=== PATIENT | female | born 1985 | race Asian ===

== ENCOUNTER → 2020-11-27 | Outpatient (REF) | LOC: M LAB 14:29 | PROVIDERS: ATTEND Nurse Practitioner Adult Health | DX: Z00.00 Encounter for general adult medical examination without abnormal findings (principal) ==

== ENCOUNTER → 2020-12-03 | Outpatient (REF) ==
--- NOTE | 2020-12-03 12:51 | REP ---
INDICATION: [employer]. COMPARISON: None. TECHNIQUE: PA and lateral FINDINGS: The superior mediastinal structures are midline. The cardiac silhouette is unremarkable in size, shape, and position. The diaphragmatic surfaces of the lungs are regular, and the costophrenic angles are clear. The pulmonary mares are clear. The imaged osseous structures are intact. IMPRESSION: There is no acute cardiopulmonary disease. <Electronically signed by Jun Thornton > 12/03/20 2429
== END ==
LOC: M RAD 12:17
PROVIDERS: ATTEND Nurse Practitioner Adult Health
DX: Z02.9 Encounter for administrative examinations, unspecified (principal)

== ENCOUNTER → 2020-12-20 | Outpatient (CLI) | payer OTHER ==
[2020-12-20 13:51] LABS: BASO % 0.8 % (0.0-1.0); EOS # 0.1 10^3/uL (0.0-0.5); EOS % 1.4 % (0.0-3.0); HEMATOCRIT 40.6 % (36.0-47.0); HEMOGLOBIN 13.5 g/dl (12.0-15.5); LYMPH # 2.4 10^3/uL (1.5-5.0); MEAN CORPUSCULAR HEMOGLOBIN 30.4 pg (27.0-33.0); MEAN CORPUSCULAR HGB CONC 33.3 g/dl (32.0-36.5); MEAN CORPUSCULAR VOLUME 91.4 fl (80.0-96.0); MONO # 0.4 10^3/uL (0.0-0.8); MONO % 7.9 % (2.0-8.0); NEUTROPHILS # 2.3 10^3/uL (1.5-8.5); NEUTROPHILS % 43.7 % (36.0-66.0); PLATELET COUNT, AUTOMATED 226 10^3/uL (150-450); RED BLOOD COUNT 4.44 10^6/uL (4.00-5.40); WHITE BLOOD COUNT 5.2 10^3/uL (4.0-10.0)
[2020-12-20 14:21] LABS: ALT/SGPT 29 U/L (12-78); BILIRUBIN,TOTAL 0.9 MG/DL (0.2-1.0); BLOOD UREA NITROGEN 11 MG/DL (7-18); CALCIUM LEVEL 8.8 MG/DL (8.5-10.1); CARBON DIOXIDE LEVEL 30 MEQ/L (21-32); CHLORIDE LEVEL 106 MEQ/L (98-107); CREATININE FOR GFR 0.61 MG/DL (0.55-1.30); GLOMERULAR FILTRATION RATE > 60.0 (>60); GLUCOSE, FASTING 79 MG/DL (70-100); POTASSIUM SERUM 4.8 MEQ/L (3.5-5.1); SODIUM LEVEL 139 MEQ/L (136-145); TOTAL PROTEIN 7.8 GM/DL (6.4-8.2)
== END ==
LOC: M PLALAB 11:38
PROVIDERS: ATTEND Internal Medicine Infectious Disease
DX: Z22.7 Latent tuberculosis (principal); R76.12 Nonspecific reaction to cell mediated immunity measurement of gamma interferon antigen response without active tuberculosis
CPT/HCPCS: 36415; 80053; 85025; 86480; G0463

== ENCOUNTER → 2022-04-09 | Outpatient (CLI) | payer OTHER | LOC: M RAD 12:57 | PROVIDERS: ATTEND Obstetrics & Gynecology | DX: O24.419 Gestational diabetes mellitus in pregnancy, unspecified control (principal); Z3A.35 35 weeks gestation of pregnancy ==

== ENCOUNTER 2022-04-30 13:50 | Inpatient (IN) | payer OTHER ==
[~2022-04-30] VITALS: Ht 162.6 cm; Wt 58.4 kg
[2022-04-30] VITALS (42 sets, daily range): BP systolic 102–174; BP diastolic 58–109
[2022-04-30 14:44] LABS: HEMATOCRIT 38.6 % (36.0-47.0); HEMOGLOBIN 13.2 g/dl (12.0-15.5); MEAN CORPUSCULAR HGB CONC 34.2 g/dl (32.0-36.5); MEAN CORPUSCULAR VOLUME 93.7 fl (80.0-96.0); PLATELET COUNT, AUTOMATED 180 10^3/uL (150-450); RED BLOOD COUNT 4.12 10^6/uL (4.00-5.40); WHITE BLOOD COUNT 6.3 10^3/uL (4.0-10.0)
[2022-04-30] MEDS ORDERED: PRENTAB9 PO (14:55)
[2022-04-30] MEDS ORDERED: LABETALOL 100MG/20ML VIAL IV STA (15:03)
[2022-04-30] MEDS ORDERED: CARBOPROST TROMETHAMINE 250 MCG/ML AMP IM PRN (15:20)
[2022-04-30] MEDS ORDERED: OXYTOCIN INJ 10UNITS/ML 1ML VIAL IM PRN (15:20)
[2022-04-30] MEDS ORDERED: NIFEdipine 10 MG CAP PO STA (15:20)
[2022-04-30] MEDS ORDERED: LIDOCAINE 1% MDV 20ML VIAL INFIL PRN (15:20)
[2022-04-30] MEDS ORDERED: TRANEXAMIC ACID INJection 1,000 MG in NS 100 ML IV PRN (15:20)
[2022-04-30] MEDS ORDERED: MAG Sulf (L&D) 4 GM/100 ML 4 GM in IV 1 EA IV ONE (15:20)
[2022-04-30] MEDS ORDERED: OXYTOCIN DRIP 30 UNITS in IV 1 EA IV PRN ×6 (15:20)
[2022-04-30] MEDS ORDERED: METHYLERGONOVINE MALEATE 0.2MG/ML 1ML VIAL IM PRN (15:20)
[2022-04-30 15:39] LABS: URIC ACID 7.2 MG/DL (3.1-7.8)
[2022-04-30 15:41] LABS: LDH LACTATE DEHYDROGENASE 185 U/L (120-246)
[2022-04-30 15:46] LABS: ALBUMIN 2.9 G/DL (3.2-5.2); ALKALINE PHOSPHATASE 411 U/L (46-116); ALT/SGPT 15 U/L (7.0-40); AST/SGOT 20 U/L (<34); BLOOD UREA NITROGEN 11 MG/DL (9-23); CALCIUM LEVEL 9.6 MG/DL (8.5-10.1); CARBON DIOXIDE LEVEL 21 MMOL/L (20-31); CHLORIDE LEVEL 105 MMOL/L (98-107); CREATININE FOR GFR 0.54 MG/DL (0.55-1.30); GLOMERULAR FILTRATION RATE > 60.0 (>60); GLUCOSE, FASTING 84 MG/DL (60-100); POTASSIUM SERUM 4.2 MMOL/L (3.5-5.1); SODIUM LEVEL 137 MMOL/L (136-145)
[2022-04-30 16:11] LABS: APPEARANCE, URINE HAZY (CLEAR); BACTERIA, URINE AUTO 1+ (NEGATIVE); BILIRUBIN, URINE AUTO NEGATIVE (NEGATIVE); BLOOD, URINE BLOOD NEGATIVE (NEGATIVE); COLOR, URINE STRAW (YELLOW); GLUCOSE, URINE (UA) AUTO NEGATIVE (NEGATIVE); KETONE, URINE AUTO NEGATIVE (NEGATIVE); LEUKOCYTE ESTERASE, URINE AUTO 2+ (NEGATIVE); MUCUS, URINE SMALL (NEGATIVE); NITRITE, URINE AUTO NEGATIVE (NEGATIVE); PROTEIN, URINE AUTO NEGATIVE (NEGATIVE); RBC, URINE AUTO 2 /HPF (0-3); SPECIFIC GRAVITY URINE AUTO 1.004 (1.002-1.035); SQUAMOUS EPITHELIAL CELL UR AU 4 /HPF (0-6); UROBILINOGEN, URINE AUTO 0.2 mg/dL (0.0-2.0); WBC, URINE AUTO 8 /HPF (0-3)
[2022-04-30] MEDS: LR 1,000 ML IV SCH ×2 (16:21→23:06)
[2022-04-30] MEDS: MAG Sulf (OBGYN) 20GM/500ML 20,000 MG in IV 1 EA IV SCH (16:47)
[2022-04-30] MEDS: miSOPROStol 50MCG 1/2 TABLET PO PRN ×2 (17:05→21:07)
[2022-04-30 18:49] LABS: BILIRUBIN,TOTAL 0.5 MG/DL (0.3-1.2); TOTAL PROTEIN 2.2 G/DL (5.7-8.2)
[2022-04-30] MEDS ORDERED: ACETAMINOPHEN TAB 650MG DOSE (2X325MG) PO ONE (22:00)
[2022-04-30] MEDS ORDERED: LR 500 ML IV PRN (22:10)
[2022-04-30] MEDS ORDERED: EPIDURAL/PCA KEYS XX PRN (22:10)
[2022-04-30] MEDS ORDERED: NALOXONE INJ 0.4MG/1ML VIAL IV PRN (22:10)
[2022-04-30] MEDS ORDERED: FENTANYL/ROPIVACAINE/NACL BAG 100 ML EPIDURAL SCH (22:10)
[2022-04-30] MEDS ORDERED: ONDANSETRON 4MG 2ML VIAL IV PRN (22:10)
[2022-04-30] MEDS ORDERED: diphenhydrAMINE 50MG/ML VIAL IV PRN (22:10)
[2022-04-30] MEDS: ePHEDrine SULFATE 25 MG/5 ML(5MG/ML) SYRINGE IVP PRN (23:45)
[2022-05-01] VITALS (44 sets, daily range): BP systolic 104–172; BP diastolic 72–110
[2022-05-01] MEDS: ePHEDrine SULFATE 25 MG/5 ML(5MG/ML) SYRINGE IVP PRN ×2 (00:39→00:54)
[2022-05-01] MEDS: MAG Sulf (OBGYN) 20GM/500ML 20,000 MG in IV 1 EA IV SCH ×2 (02:15→20:35)
[2022-05-01] MEDS ORDERED: OXYTOCIN DRIP 30 UNITS in IV 1 EA IV SCH (02:35)
[2022-05-01] MEDS: LR 1,000 ML IV SCH ×3 (03:00→22:00)
[2022-05-01 06:01] LABS: HEMATOCRIT 38.8 % (36.0-47.0); HEMOGLOBIN 13.3 g/dl (12.0-15.5); MEAN CORPUSCULAR HGB CONC 34.3 g/dl (32.0-36.5); MEAN CORPUSCULAR VOLUME 93.5 fl (80.0-96.0); PLATELET COUNT, AUTOMATED 123 10^3/uL (150-450); RED BLOOD COUNT 4.15 10^6/uL (4.00-5.40); WHITE BLOOD COUNT 6.6 10^3/uL (4.0-10.0)
[2022-05-01] MEDS ORDERED: ACETAMINOPHEN 500 MG TAB PO PRN (07:10)
[2022-05-01] MEDS ORDERED: ACETAMINOPHEN TAB 650MG DOSE (2X325MG) PO PRN (07:10)
[2022-05-01] MEDS ORDERED: METHYLERGONOVINE MALEATE 0.2 MG TAB PO PRN (07:10)
[2022-05-01] MEDS ORDERED: DIBUCAINE 1% OINTMENT 30GM TOP PRN (07:10)
[2022-05-01] MEDS ORDERED: RHOGAM 300MCG (1500IU) INJ IM SCH (07:10)
[2022-05-01] MEDS ORDERED: IBUPROFEN 600MG TAB PO PRN (07:10)
[2022-05-01] MEDS ORDERED: IBUPROFEN 800 MG TAB PO PRN (07:10)
[2022-05-01] MEDS: PRENATAL VITAMINS CHEWABLE TABLET PO SCH (09:04)
[2022-05-02] VITALS (13 sets, daily range): BP systolic 133–165; BP diastolic 82–100
[2022-05-02 06:49] LABS: HEMATOCRIT 32.1 % (36.0-47.0); MEAN CORPUSCULAR HEMOGLOBIN 31.8 pg (27.0-33.0); MEAN CORPUSCULAR HGB CONC 33.6 g/dl (32.0-36.5); MEAN CORPUSCULAR VOLUME 94.4 fl (80.0-96.0); PLATELET COUNT, AUTOMATED 138 10^3/uL (150-450)
[2022-05-02 06:56] LABS: HEMOGLOBIN 10.8 g/dl (12.0-15.5)
[2022-05-02] MEDS: PRENATAL VITAMINS CHEWABLE TABLET PO SCH (09:00)
[2022-05-02] MEDS: DOCUSATE SODIUM 100MG CAPSULE PO PRN (09:29)
[2022-05-02] MEDS: LABETALOL 200 MG TAB PO SCH (16:36)
[2022-05-02] MEDS ORDERED: NIFEdipine 30MG XL TAB PO SCH (21:00)
[2022-05-03 02:00] VITALS: BP 139/95
[2022-05-03 02:30] VITALS: BP 152/84
[2022-05-03 06:00] VITALS: BP 132/85
[2022-05-03 07:23] LABS: HEMATOCRIT 32.7 % (36.0-47.0); HEMOGLOBIN 11.2 g/dl (12.0-15.5); MEAN CORPUSCULAR HEMOGLOBIN 32.4 pg (27.0-33.0); MEAN CORPUSCULAR HGB CONC 34.3 g/dl (32.0-36.5); MEAN CORPUSCULAR VOLUME 94.5 fl (80.0-96.0); PLATELET COUNT, AUTOMATED 156 10^3/uL (150-450); RED BLOOD COUNT 3.46 10^6/uL (4.00-5.40); WHITE BLOOD COUNT 10.4 10^3/uL (4.0-10.0)
[2022-05-03] MEDS: DOCUSATE SODIUM 100MG CAPSULE PO PRN (08:11)
[2022-05-03 08:13] VITALS: BP 123/79
[2022-05-03] MEDS: LABETALOL 200 MG TAB PO SCH (08:13)
[2022-05-03] MEDS: PRENATAL VITAMINS CHEWABLE TABLET PO SCH (08:13)
[2022-05-03 08:57] VITALS: BP 123/83
[2022-05-03] MEDS ORDERED: MEASLES,MUMPS,RUBELLA VACCINE INJ (MMR-II) SC.IMMUN ONE (09:00)
== END 2022-05-03 13:10 | disposition home or self-care (01) | DRG 807 ==
LOC: M LDO 13:50 → M LDI 14:48 → M OBS 05-01 19:00
PROVIDERS: ADMIT Registered Nurse; ATTEND Obstetrics & Gynecology
PROC: 3E0P7GC Introduction of Other Therapeutic Substance into Female Reproductive, Via Natural or Artificial Opening (ICD-10-PCS; 2022-04-30)
PROC: 10E0XZZ Delivery of Products of Conception, External Approach (ICD-10-PCS; principal; 2022-05-01)
PROC: 0KQM0ZZ Repair Perineum Muscle, Open Approach (ICD-10-PCS; 2022-05-01)
DX: O14.14 Severe pre-eclampsia complicating childbirth (principal); Z37.0 Single live birth; O24.420 Gestational diabetes mellitus in childbirth, diet controlled; Z3A.38 38 weeks gestation of pregnancy; O70.1 Second degree perineal laceration during delivery